=== PATIENT | male | born 1975 ===

== ENCOUNTER 2018-12-20 10:13 | Inpatient (IN) ==
[2018-12-20] MEDS ORDERED: DOCUSATE SODIUM 100 MG CAPSULE PO PRN (13:50)
[2018-12-20] MEDS ORDERED: ZALEPLON 5 MG CAPSULE PO PRN (13:50)
[2018-12-20] MEDS ORDERED: ONDANSETRON 4 MG/2 ML VIAL IV PRN (13:50)
[2018-12-20] MEDS ORDERED: hydrALAZINE 20 MG/1 ML VIAL IV ONE (14:02)
[2018-12-20] MEDS ORDERED: SODIUM CHLORIDE 0.9% 3,400 ML IV ONE (14:08)
[2018-12-20] MEDS ORDERED: SODIUM CHLORIDE 0.9% 1,000 ML IV ONE (14:09)
[2018-12-20] MEDS: IBUPROFEN 800 MG TABLET PO PRN ×2 (14:19→21:24)
[2018-12-20] MEDS: PANTOPRAZOLE 40 MG TABLET PO SCH (14:20)
[2018-12-20] MEDS: ENOXAPARIN 40 MG/0.4 ML SYRINGE SUBCUT SCH (14:22)
[2018-12-20] MEDS ORDERED: hydrALAZINE 20 MG/1 ML VIAL IV PRN (14:27)
[2018-12-20] MEDS ORDERED: VANCOMYCIN INJ 1,750 MG in SODIUM CHLORIDE 0.9% 500 ML IV ONE (14:30)
[2018-12-20] MEDS: LIDOCAINE 5% PATCH TRANSDERM SCH (14:57)
[2018-12-20] MEDS: HYDROmorphone 2 MG/1 ML VIAL IV PRN ×2 (14:57→18:48)
[2018-12-20] MEDS: NICOTINE 21 MG/24 HR PATCH TRANSDERM SCH (15:02)
[2018-12-20] MEDS: amLODIPine 5 MG TABLET PO SCH (15:03)
[2018-12-20 15:04] LABS: Basophils % 0.2 % (0.0-0.8); Eosinophils % 0.1 % (0.00-10.9); Hematocrit 32.3 VOL% (42.0-52.0); Hemoglobin 11.3 GM/DL (14.0-18.0); Immature Granulocytes % 3.1 %; Immature Granulocytes Absolute 0.56 #; Lymphocytes # 0.8 10*3/uL (1.4-4.0); Lymphocytes % 4.2 % (21.2-54.2); Mean Corpuscular Volume 105.2 FL (87-102); Mean Platelet Volume 9.7 FL (9.6-12.0); Monocytes % 8.6 % (1.7-12.7); Neutrophils % 83.8 % (38.7-73.9); Platelet Count 152 T/CUMM (130-400); Red Blood Count 3.07 MC/CUMM (3.8-5.5); Red Cell Distribution Width 11.4 % (9.3-17.3)
[2018-12-20] MEDS ORDERED: DIPH/TET/ACEL PERT BOOSTER VACCINE 0.5 ML VIAL IM ONE (15:10)
[2018-12-20 15:23] LABS: Albumin 2.8 G/DL (3.4-5.0); Bilirubin,Total 1.7 MG/DL (0.2-1.0); Calcium 7.9 MG/DL (8.5-10.1); Osmolality,Calculated 259.9 MOS/KG (273-304); Total Protein 7.1 G/DL (6.4-8.3)
[2018-12-20] MEDS ORDERED: chlordiazePOXIDE 25 MG CAPSULE PO PRN (15:23)
[2018-12-20 15:33] LABS: Lymphocytes 5 % (20-55); Segmented Neutrophils 85 % (50-85)
[2018-12-20 15:34] LABS: Hypochromasia Slight; Microcytosis Slight; Platelet Estimate Normal
[2018-12-20 15:35] LABS: Total Cells Counted 100
[2018-12-20] MEDS: CYANOCOBALAMIN 1000 MCG/1 ML VIAL IM SCH (16:29)
[2018-12-20] MEDS: SODIUM CHLORIDE 0.9% 1,000 ML IV SCH (17:07)
[2018-12-20 18:32] LABS: Barbiturates Screen,Urine Negative (Negative); Benzodiazepines Screen,Urine Negative (Negative); Cannabinoid Screen,Urine Negative (Negative); Opiate Screen,Urine Positive (Negative); Phencyclidine Screen,Urine Negative (Negative)
[2018-12-21] MEDS: LIDOCAINE 5% PATCH TRANSDERM SCH ×2 (02:23→15:04)
[2018-12-21] MEDS: SODIUM CHLORIDE 0.9% 1,000 ML IV SCH ×2 (02:23→15:05)
[2018-12-21] MEDS: VANCOMYCIN INJ 1,750 MG in SODIUM CHLORIDE 0.9% 500 ML IV SCH ×2 (03:30→15:44)
[2018-12-21] MEDS: HYDROmorphone 2 MG/1 ML VIAL IV PRN ×4 (06:49→22:46)
[2018-12-21 07:51] LABS: Basophils % 0.3 % (0.0-0.8); Hematocrit 32.5 VOL% (42.0-52.0); Immature Granulocytes % 0.6 %; Immature Granulocytes Absolute 0.07 #; Lymphocytes # 0.8 10*3/uL (1.4-4.0); Lymphocytes % 7.5 % (21.2-54.2); Mean Corpuscular HGB Conc 33.8 GM/DL (32-36); Mean Corpuscular Volume 104.8 FL (87-102); Mean Platelet Volume 9.1 FL (9.6-12.0); Monocytes % 6.8 % (1.7-12.7); Neutrophils % 84.8 % (38.7-73.9); Platelet Count 112 T/CUMM (130-400); Red Cell Distribution Width 11.1 % (9.3-17.3); White Blood Count 10.9 T/CUMM (4-12)
[2018-12-21 08:13] LABS: Calcium 8.2 MG/DL (8.5-10.1); Osmolality,Calculated 269.1 MOS/KG (273-304)
[2018-12-21] MEDS ORDERED: MAGNESIUM SULF RIDER 2 GM in PREMIX 1 EACH IV PRN (09:12)
[2018-12-21] MEDS ORDERED: MAGNESIUM SULF RIDER 4 GM in PREMIX 1 EACH IV PRN (09:12)
[2018-12-21] MEDS: THIAMINE 200 MG/2 ML VIAL IV SCH (10:24)
[2018-12-21] MEDS: cefTRIAXone 1,000 MG in SYRINGE 1 EACH IV SCH (10:24)
[2018-12-21] MEDS: NICOTINE 21 MG/24 HR PATCH TRANSDERM SCH (10:24)
[2018-12-21] MEDS: CYANOCOBALAMIN 1000 MCG/1 ML VIAL IM SCH (10:26)
[2018-12-21] MEDS ORDERED: GENTAMICIN 80 MG/2 ML VIAL ONE (12:43)
[2018-12-21] MEDS ORDERED: BACITRACIN 50,000 UNIT VIAL ONE (12:44)
[2018-12-21] MEDS ORDERED: SEVOFLURANE 1 UNIT/15 MINUTE INH ONE (14:14)
[2018-12-21] MEDS ORDERED: PROPOFOL 200 MG/20 ML VIAL IV ONE (14:14)
[2018-12-21] MEDS ORDERED: fentaNYL 100 MCG/2 ML VIAL ONE (14:14)
[2018-12-21] MEDS ORDERED: DEXAMETHASONE 4 MG/1 ML VIAL ONE (14:15)
[2018-12-21] MEDS ORDERED: MIDAZOLAM 2 MG/2 ML VIAL ONE (14:15)
[2018-12-21] MEDS ORDERED: SODIUM CHLORIDE 0.9% 1,000 ML IV ONE (14:15)
[2018-12-21] MEDS ORDERED: KETOROLAC 30 MG/1 ML VIAL ONE (14:15)
[2018-12-21] MEDS ORDERED: ONDANSETRON 4 MG/2 ML VIAL ONE (14:15)
[2018-12-21] MEDS ORDERED: PHENYLEPHRINE 1 MG/10 ML SYRINGE IV ONE (14:15)
[2018-12-21] MEDS: amLODIPine 5 MG TABLET PO SCH (15:04)
[2018-12-21] MEDS: LISINOPRIL 10 MG TABLET PO SCH (15:04)
[2018-12-21] MEDS: FOLIC ACID 1 MG TABLET PO SCH (15:04)
[2018-12-21] MEDS: PANTOPRAZOLE 40 MG TABLET PO SCH (15:05)
[2018-12-21] MEDS: ENOXAPARIN 40 MG/0.4 ML SYRINGE SUBCUT SCH (15:05)
[2018-12-21] MEDS: IBUPROFEN 800 MG TABLET PO PRN (23:19)
[2018-12-22] MEDS: SODIUM CHLORIDE 0.9% 1,000 ML IV SCH ×2 (03:11→13:49)
[2018-12-22] MEDS: VANCOMYCIN INJ 1,750 MG in SODIUM CHLORIDE 0.9% 500 ML IV SCH ×3 (03:12→22:58)
[2018-12-22] MEDS: LIDOCAINE 5% PATCH TRANSDERM SCH ×2 (03:12→14:35)
[2018-12-22 05:55] LABS: Basophils % 0.3 % (0.0-0.8); Hematocrit 28.8 VOL% (42.0-52.0); Hemoglobin 9.6 GM/DL (14.0-18.0); Immature Granulocytes % 0.7 %; Immature Granulocytes Absolute 0.07 #; Lymphocytes % 10.4 % (21.2-54.2); Mean Corpuscular HGB Conc 33.3 GM/DL (32-36); Mean Corpuscular Volume 106.3 FL (87-102); Monocytes % 13.3 % (1.7-12.7); Neutrophils % 75.3 % (38.7-73.9); Platelet Count 121 T/CUMM (130-400); Red Blood Count 2.71 MC/CUMM (3.8-5.5); Red Cell Distribution Width 10.9 % (9.3-17.3); White Blood Count 9.8 T/CUMM (4-12)
[2018-12-22 06:04] LABS: Calcium 7.7 MG/DL (8.5-10.1); Osmolality,Calculated 269.2 MOS/KG (273-304)
[2018-12-22 06:23] LABS: Band Neutrophils 1 % (0-10); Lymphocytes 10 % (20-55); Segmented Neutrophils 81 % (50-85); Total Cells Counted 100
[2018-12-22 06:24] LABS: Hypochromasia 1+; Platelet Estimate Normal
[2018-12-22] MEDS: HYDROmorphone 2 MG/1 ML VIAL IV PRN ×3 (06:43→20:56)
[2018-12-22] MEDS: ENOXAPARIN 40 MG/0.4 ML SYRINGE SUBCUT SCH (09:26)
[2018-12-22] MEDS: FOLIC ACID 1 MG TABLET PO SCH (09:27)
[2018-12-22] MEDS: amLODIPine 5 MG TABLET PO SCH (09:27)
[2018-12-22] MEDS: PANTOPRAZOLE 40 MG TABLET PO SCH (09:27)
[2018-12-22] MEDS: cefTRIAXone 1,000 MG in SYRINGE 1 EACH IV SCH (09:28)
[2018-12-22] MEDS: LISINOPRIL 10 MG TABLET PO SCH (09:28)
[2018-12-22] MEDS: THIAMINE 200 MG/2 ML VIAL IV SCH (09:33)
[2018-12-22] MEDS: CYANOCOBALAMIN 1000 MCG/1 ML VIAL IM SCH (09:36)
[2018-12-22] MEDS: NICOTINE 21 MG/24 HR PATCH TRANSDERM SCH (09:37)
[2018-12-22] MEDS: IBUPROFEN 800 MG TABLET PO PRN (13:07)
[2018-12-23] MEDS: HYDROmorphone 2 MG/1 ML VIAL IV PRN ×3 (03:43→20:23)
[2018-12-23] MEDS: LIDOCAINE 5% PATCH TRANSDERM SCH ×2 (03:43→15:21)
[2018-12-23 06:07] LABS: Basophils % 0.4 % (0.0-0.8); Eosinophils % 0.3 % (0.00-10.9); Hematocrit 29.8 VOL% (42.0-52.0); Hemoglobin 10.4 GM/DL (14.0-18.0); Immature Granulocytes % 0.8 %; Immature Granulocytes Absolute 0.08 #; Lymphocytes # 1.3 10*3/uL (1.4-4.0); Lymphocytes % 12.2 % (21.2-54.2); Mean Corpuscular HGB Conc 34.9 GM/DL (32-36); Mean Corpuscular Volume 102.8 FL (87-102); Mean Platelet Volume 9.4 FL (9.6-12.0); Neutrophils % 70.3 % (38.7-73.9); Platelet Count 157 T/CUMM (130-400); Red Cell Distribution Width 10.7 % (9.3-17.3); White Blood Count 10.4 T/CUMM (4-12)
[2018-12-23 06:26] LABS: Eosinophils 1 % (0-10); Hypochromasia 1+; Lymphocytes 18 % (20-55); Platelet Estimate Adequate; Segmented Neutrophils 75 % (50-85); Total Cells Counted 100
[2018-12-23 06:33] LABS: Calcium 7.8 MG/DL (8.5-10.1); Osmolality,Calculated 260.8 MOS/KG (273-304)
[2018-12-23] MEDS: VANCOMYCIN INJ 1,750 MG in SODIUM CHLORIDE 0.9% 500 ML IV SCH ×3 (06:43→22:52)
[2018-12-23] MEDS: SODIUM CHLORIDE 0.9% 1,000 ML IV SCH ×3 (06:50→22:00)
[2018-12-23] MEDS ORDERED: MAGNESIUM SULF RIDER 4 GM in PREMIX 1 EACH IV ONE (08:00)
[2018-12-23] MEDS: THIAMINE 200 MG/2 ML VIAL IV SCH (09:47)
[2018-12-23] MEDS: ENOXAPARIN 40 MG/0.4 ML SYRINGE SUBCUT SCH (09:47)
[2018-12-23] MEDS: CYANOCOBALAMIN 1000 MCG/1 ML VIAL IM SCH (09:50)
[2018-12-23] MEDS: cefTRIAXone 1,000 MG in SYRINGE 1 EACH IV SCH (09:59)
[2018-12-23] MEDS: amLODIPine 5 MG TABLET PO SCH (10:00)
[2018-12-23] MEDS: LISINOPRIL 10 MG TABLET PO SCH (10:00)
[2018-12-23] MEDS: NICOTINE 21 MG/24 HR PATCH TRANSDERM SCH (10:00)
[2018-12-23] MEDS: PANTOPRAZOLE 40 MG TABLET PO SCH (10:00)
[2018-12-23] MEDS: FOLIC ACID 1 MG TABLET PO SCH (10:00)
[2018-12-23] MEDS: POTASSIUM CHLORIDE 20 MEQ TABLET PO SCH ×3 (11:48→20:23)
[2018-12-23] MEDS: LACTULOSE 20 GM/30 ML UDCUP PO PRN (12:30)
[2018-12-24] MEDS: IBUPROFEN 800 MG TABLET PO PRN ×2 (00:39→16:12)
[2018-12-24] MEDS: HYDROmorphone 2 MG/1 ML VIAL IV PRN ×4 (01:53→19:38)
[2018-12-24] MEDS: LIDOCAINE 5% PATCH TRANSDERM SCH ×2 (04:32→15:53)
[2018-12-24 05:43] LABS: Basophils # 0.1 10*3/uL (0.0-0.2); Basophils % 0.5 % (0.0-0.8); Eosinophils # 0.1 10*3/uL (0.0-0.87); Eosinophils % 0.4 % (0.00-10.9); Hematocrit 30.4 VOL% (42.0-52.0); Hemoglobin 10.2 GM/DL (14.0-18.0); Immature Granulocytes % 1.7 %; Immature Granulocytes Absolute 0.23 #; Lymphocytes % 14.5 % (21.2-54.2); Mean Corpuscular HGB Conc 33.6 GM/DL (32-36); Mean Corpuscular Volume 104.8 FL (87-102); Mean Platelet Volume 9.2 FL (9.6-12.0); Monocytes % 19.4 % (1.7-12.7); Neutrophils % 63.5 % (38.7-73.9); Platelet Count 167 T/CUMM (130-400); White Blood Count 13.5 T/CUMM (4-12)
[2018-12-24 06:04] LABS: Eosinophils 2 % (0-10); Hypochromasia 1+; Lymphocytes 11 % (20-55); Platelet Estimate Adequate; Segmented Neutrophils 76 % (50-85); Total Cells Counted 100
[2018-12-24 06:08] LABS: Calcium 8.2 MG/DL (8.5-10.1); Osmolality,Calculated 267.4 MOS/KG (273-304); Thyroid Stimulating Hormone 1.11 uIU/ml (0.358-3.74)
[2018-12-24 06:13] LABS: Folate 10.1 NG/ML (5.4-24.0); Vitamin B12 > 2000 PG/ML (211-911)
[2018-12-24] MEDS: SODIUM CHLORIDE 0.9% 1,000 ML IV SCH (06:20)
[2018-12-24] MEDS: THIAMINE 100 MG TABLET PO SCH (09:14)
[2018-12-24] MEDS: amLODIPine 5 MG TABLET PO SCH (09:14)
[2018-12-24] MEDS: LISINOPRIL 20 MG TABLET PO SCH (09:14)
[2018-12-24] MEDS: FOLIC ACID 1 MG TABLET PO SCH (09:15)
[2018-12-24] MEDS: PANTOPRAZOLE 40 MG TABLET PO SCH (09:15)
[2018-12-24] MEDS: NICOTINE 21 MG/24 HR PATCH TRANSDERM SCH ×2 (09:15→09:28)
[2018-12-24] MEDS: ENOXAPARIN 40 MG/0.4 ML SYRINGE SUBCUT SCH (09:18)
[2018-12-24] MEDS: CYANOCOBALAMIN 1000 MCG/1 ML VIAL IM SCH (09:19)
[2018-12-24] MEDS: VANCOMYCIN INJ 1,750 MG in SODIUM CHLORIDE 0.9% 500 ML IV SCH ×2 (09:20→18:01)
[2018-12-24] MEDS: LACTULOSE 20 GM/30 ML UDCUP PO PRN (09:36)
[2018-12-25] MEDS: VANCOMYCIN INJ 1,750 MG in SODIUM CHLORIDE 0.9% 500 ML IV SCH ×2 (00:49→09:42)
[2018-12-25] MEDS: HYDROmorphone 2 MG/1 ML VIAL IV PRN ×4 (00:50→14:53)
[2018-12-25] MEDS: LIDOCAINE 5% PATCH TRANSDERM SCH ×2 (04:06→14:53)
[2018-12-25] MEDS: amLODIPine 5 MG TABLET PO SCH (09:41)
[2018-12-25] MEDS: THIAMINE 100 MG TABLET PO SCH (09:41)
[2018-12-25] MEDS: PANTOPRAZOLE 40 MG TABLET PO SCH (09:41)
[2018-12-25] MEDS: LISINOPRIL 20 MG TABLET PO SCH (09:41)
[2018-12-25] MEDS: CYANOCOBALAMIN 1000 MCG/1 ML VIAL IM SCH (09:41)
[2018-12-25] MEDS: FOLIC ACID 1 MG TABLET PO SCH (09:41)
[2018-12-25] MEDS: NICOTINE 21 MG/24 HR PATCH TRANSDERM SCH (09:42)
[2018-12-25] MEDS: ENOXAPARIN 40 MG/0.4 ML SYRINGE SUBCUT SCH (09:42)
[2018-12-25 12:02] VITALS: BP 130/90
[2018-12-25] MEDS: LACTULOSE 20 GM/30 ML UDCUP PO PRN (14:53)
== END 2018-12-25 16:14 | DRG 485 ==
LOC: N.2E → SUATTDRO 13:50
PROVIDERS: ADMIT Internal Medicine; ATTEND Internal Medicine